=== PATIENT | male | born 1990 | race Hispanic/Latino ===

== ENCOUNTER → 2023-09-27 | Day surgery (SDC) | payer OTHER ==
[2023-09-23 12:03] LABS: Absolute Eosinophils 0.2 K/uL (0-0.5); Absolute Lymphocytes (CBC) 2.1 K/uL (0.7-4.9); Absolute Monocytes 0.4 K/uL (0.1-1.3); Absolute Neutrophil 2.4 K/uL (1.8-8.0); Basophils % 0.5 % (0-1.3); Eosinophils % 3.6 % (0-4.4); Hematocrit 43.6 % (39.6-49.0); Hemoglobin 14.5 g/dL (13.6-17.9); Lymphocytes % 41.4 % (15.3-44.8); MCH 28.7 pg (27.0-35.0); MCHC 33.3 g/dL (32.0-36.0); MCV 86.3 fL (80-100); MPV 10.3 fL (7.6-11.3); Monocytes % 8.3 % (3.3-12.3); Neutrophils % 46.2 % (41.7-73.7); Nucleated Red Blood Cells % 0.1 % (0-0); Platelets 223 thou/uL (152-406); RBC Red Blood Cell Count 5.05 M/uL (4.33-5.43); Red Cell Distribution Width 13.4 % (12.1-15.2)
[2023-09-23 12:09] LABS: PT Prothrombin Time 11.1 SECONDS (9.5-12.5); PTT, Activated Partial Thromb 38.4 SECONDS (24.3-36.9); Protime INR 1.01
--- NOTE | 2023-09-23 12:10 | RAD REPORT ---
EXAM DESCRIPTION: RAD - Chest Pa And Lat (2 Views) - 09/23/2023 11:59 am CLINICAL HISTORY: Pre op pending knee arthroscopy Chest pain. COMPARISON: No comparisons FINDINGS: The lungs are clear. The heart is normal in size. No displaced fractures. IMPRESSION: No acute or concerning finding suspected.
[2023-09-23 12:17] LABS: Anion Gap 7.8 mEq/L (5.0-15.0); Potassium 3.8 mEq/L (3.5-5.1)
[~2023-09-27] MED LIST: EPINEPHRINE 1 MG/ML VIAL ONE; FENTANYL CITR 100 MCG/2 ML ONE; KETOROLAC 30 MG/ML INJ ONE; LIDOCAINE 2% MPF 5 ML VIAL ONE; MIDAZOLAM HCL 2 MG/2 ML INJ ONE; ONDANSETRON 4 MG/2 ML VIAL ONE; dexAMETHasone 10 MG/ML VIAL ONE; propofoL 200 MG/20 ML VIAL IV ONE
[2023-09-27] MEDS: Ringers Lactate 1,000 ML IV ONE (06:20)
[2023-09-27] MEDS: CEFAZOLIN SODIUM 2 GM/VIAL ONE (08:00)
--- NOTE | 2023-09-27 10:23 | P.BOP ---
Preoperative diagnosis: left knee ACL tear, medial mensicus tear Postoperative diagnosis: same, left knee lateral meniscus tear Primary procedure: left knee arthroscopic ACL reconstruction with Achilles allograft Secondary procedure: left knee arthroscopic medial meniscus repair Other procedure(s): left knee arthroscopic partial lateral meniscectomy Isotope Hydrologist: NONE,NONE Estimated blood loss: 5 cc Specimen: none Findings: see dictation Anesthesia: General Complications: None Implants: 8x20, 10x20 Arthrex bioscrew, 6.5 x 25 mm cancellous post Fluids & blood products: per anesthesia record; TT: 82 mins @ 300 mmHg Transferred to: Recovery Room Condition: Good
[2023-09-27] MEDS: MEPERIDINE HCL 25 MG/ML SYR ONE (10:25)
--- NOTE | 2023-09-27 11:01 | RAD REPORT ---
EXAM DESCRIPTION: RAD - Knee 1 View - 09/27/2023 10:47 am CLINICAL HISTORY: Knee surgery FINDINGS: Frontal view of the left knee demonstrates postsurgical changes ACL repair. No fracture visualized
[2023-09-27 12:40] VITALS: BP 134/73; TEMP 96.9; O2SAT 100
--- NOTE | 2023-09-27 17:41 | EKG ---
Test Date: 2023-09-23 Test Time: 11:45:20 Transmitter Tester: MARIA ISABEL MEASUREMENT RESULTS: Intervals: Rate: 54 NE: 162 QRSD: 86 QT: 422 QTc: 400 [place]: P: 78 NE: 162 QRS: 80 T: 77 INTERPRETIVE STATEMENTS: Sinus bradycardia Nonspecific ST abnormality Abnormal ECG No previous ECG available for comparison Electronically Signed On 09-27-23 17:28:23 CDT by Hermann Reyes
== END ==
LOC: OR 05:55
PROVIDERS: ATTEND Orthopaedic Surgery Sports Medicine
PROC: 0MRP4KZ Replacement of Left Knee Bursa and Ligament with Nonautologous Tissue Substitute, Percutaneous Endoscopic Approach (ICD-10-PCS; 2023-09-27)
PROC: 0LUR4KZ Supplement Left Knee Tendon with Nonautologous Tissue Substitute, Percutaneous Endoscopic Approach (ICD-10-PCS; 2023-09-27)
PROC: 0SBD4ZZ Excision of Left Knee Joint, Percutaneous Endoscopic Approach (ICD-10-PCS; principal; 2023-09-27 08:00)
DX: S83.242A Other tear of medial meniscus, current injury, left knee, initial encounter (principal); S83.512A Sprain of anterior cruciate ligament of left knee, initial encounter
CPT/HCPCS: 29881; 29882; 93005; 85025; 80048; 36415; 85610; 85730; 71046; 73560; 29888; J2704; J2001; J2250; J3010; J1100 ×2; J2175; J0171; J2405; J7120